=== PATIENT | male | born 1995 | race Caucasian/White ===

== ENCOUNTER → 2021-09-18 21:35 | Emergency (ER) | payer OTHER ==
[2021-09-18 22:08] LABS: BASOPHIL 0.8 % (0-2); HCT 38.9 % (42.0-52.0); HGB 13.3 g/dl (13.2-18.0); LYMPHOCYTE 36.2 % (15-48); MCH 28.7 pg (25.0-31.0); MCHC 34.2 g/dL (32.0-36.0); MONOCYTE 16.6 % (0-12); MPV 9.9 fL (6.0-9.5); NRBC 0; PLT 325 K/uL (150-400); RBC 4.63 M/uL (4.70-6.00); WBC 5.1 K/uL (4.0-10.5)
[2021-09-18 22:19] LABS: ALBUMIN 3.7 g/dL (3.4-5.0); BILIRUBIN - TOTAL 0.2 mg/dL (0.2-1.0); BUN/CREAT RATIO (CALC) 8.8 RATIO; CREATININE 1.02 mg/dL (0.67-1.17); GLOBULIN (CALCULATION) 3.3 g/dL; POTASSIUM 3.7 mmol/L (3.5-5.1)
== END | disposition home or self-care (01) ==
LOC: FER 21:35
PROVIDERS: Emergency Medicine
DX: U07.1 COVID-19 (principal); R07.89 Other chest pain; I10 Essential (primary) hypertension; K21.9 Gastro-esophageal reflux disease without esophagitis; F17.200 Nicotine dependence, unspecified, uncomplicated; Z28.310 Unvaccinated for COVID-19; Z88.0 Allergy status to penicillin; Z88.8 Allergy status to other drugs, medicaments and biological substances; Z79.899 Other long term (current) drug therapy
CPT/HCPCS: 36415; 80053; 84484; 85025; 93005; J1885; J2405; J7030